=== PATIENT | male | born 1960 | race Caucasian/White ===

== ENCOUNTER 2018-10-18 06:55 | Day surgery (SDC) | payer OTHER ==
[2018-10-18] MEDS ORDERED: Lactated Ringers 1,000 ML IV SCH (08:00)
[2018-10-18] MEDS ORDERED: Midazolam 1 MG/ML 2 ML SDV ONE (09:23)
[2018-10-18] MEDS ORDERED: Propofol 200 MG/20 ML SDV ONE (09:23)
[2018-10-18] MEDS ORDERED: fentaNYL 100 MCG/2 ML SDV ONE (09:23)
--- NOTE | 2018-10-19 07:52 | OR ---
DATE OF PROCEDURE: 10/18/2018 PREOPERATIVE DIAGNOSIS: Colon cancer screening. POSTOPERATIVE DIAGNOSIS: Diverticulosis. PROCEDURE: Colonoscopy to the cecum. SURGEON: Colin Castro MD ANESTHESIA: IV anesthesia with monitored anesthesia care. INDICATION: This 58-year-old white male is referred for a colonoscopy for his first colonoscopic exam. I counseled him for the procedure, including risks and alternatives, and he gave his informed consent to proceed. DESCRIPTION OF PROCEDURE: The patient was placed in the left lateral decubitus position. IV anesthesia was administered by the Anesthesia Service. Time-out was held. A rectal exam was performed, which was unremarkable. The flexible video Olympus colonoscope was introduced through his anus, up his rectum and out his colon, all the way to the cecum. Once the cecum was reached, the scope was slowly withdrawn, examining the mucosa throughout. No mucosal abnormalities were noted until we reached the left colon. Here and in the sigmoid colon, we saw a few scattered diverticula. There was no bleeding or inflammation associated with them. The scope was retroflexed in the rectum with the distal rectum showing some minor hemorrhoidal tissue, otherwise unremarkable. The scope was straightened and removed. He tolerated the procedure well. Colin Castro MD /[id number]
== END 2018-10-18 11:46 | disposition home or self-care (01) ==
LOC: JP.SDS 06:55
PROVIDERS: ATTEND Surgery
DX: Z12.11 Encounter for screening for malignant neoplasm of colon (principal); K57.30 Diverticulosis of large intestine without perforation or abscess without bleeding; I10 Essential (primary) hypertension; Z79.899 Other long term (current) drug therapy
CPT/HCPCS: 45378; J2250; J2704; J3010; J7120